=== PATIENT | female | born 2000 | race Caucasian/White ===

== ENCOUNTER 2019-01-10 16:28 | Observation (INO) | payer MEDICAID ==
[~2019-01-10] VITALS: Ht 157.5 cm; Wt 59.4 kg
[2019-01-10] MEDS ORDERED: ACETAMINOPHEN 500MG TABLET PO NR (17:30)
== END 2019-01-10 19:20 | disposition home or self-care (01) ==
LOC: 8EST NSY 16:28
PROVIDERS: ADMIT Obstetrics & Gynecology; ATTEND Obstetrics & Gynecology
DX: O62.9 Abnormality of forces of labor, unspecified (principal); O26.892 Other specified pregnancy related conditions, second trimester; M54.2 Cervicalgia; Z3A.24 24 weeks gestation of pregnancy
CPT/HCPCS: 76805; G0378

== ENCOUNTER 2019-01-10 19:31 | Emergency (ER) | payer MEDICAID ==
[~2019-01-10] VITALS: Ht 157.5 cm; Wt 59.0 kg
[2019-01-10 22:15] VITALS: BP 109/60
== END 2019-01-10 22:33 | disposition left against medical advice (07) ==
LOC: ER 19:31
DX: M54.2 Cervicalgia (principal); V49.49XA Driver injured in collision with other motor vehicles in traffic accident, initial encounter; Y93.89 Activity, other specified; Y92.89 Other specified places as the place of occurrence of the external cause; Y99.8 Other external cause status
CPT/HCPCS: 99283